=== PATIENT | male | born 1970 ===

== ENCOUNTER 2020-03-19 13:11 | Inpatient (IN) | payer BC ==
[~2020-03-19] VITALS: Ht 162.6 cm; Wt 68.0 kg
[2020-03-19] MEDS ORDERED: BISACODYL 10 MG RECTAL RECTAL SUPPOSITORY PR PRN (20:15)
[2020-03-19] MEDS ORDERED: MAGNESIUM HYDROXIDE SUSPENSION 30 ML UDCUP PO PRN (20:15)
[2020-03-19 20:30] VITALS: BP 134/86
[2020-03-19] MEDS ORDERED: TAMSULOSIN HCL 0.4 MG CAPSULE PO SCH (21:00)
[2020-03-19] MEDS: SENNA 187 MG TABLET PO SCH (22:03)
[2020-03-19] MEDS: DOCUSATE SODIUM 100 MG CAPSULE PO SCH (22:03)
[2020-03-19] MEDS: GABAPENTIN 100 MG CAPSULE PO SCH (22:03)
[2020-03-19] MEDS: HEPARIN SODIUM,PORCINE 5,000 UNITS/ML VIAL SQ SCH (22:03)
[2020-03-19] MEDS: OxyCODONE HCL/ACETAMINOPHEN 5-325 MG TABLET PO PRN (22:04)
[2020-03-19 23:04] VITALS: BP 124/78
[2020-03-20] MEDS: OxyCODONE HCL/ACETAMINOPHEN 5-325 MG TABLET PO PRN ×3 (04:35→21:16)
[2020-03-20] MEDS: GABAPENTIN 100 MG CAPSULE PO SCH ×3 (06:03→21:15)
[2020-03-20 07:15] LABS: BASOPHILS % (AUTO) 0.3 % (0.0-2.0); HEMOGLOBIN 13.1 g/dL (13.5-17.5); LYMPHOCYTES # (AUTO) 1.5 K/uL (1.0-4.8); LYMPHOCYTES % (AUTO) 21.8 % (22.0-44.0); MEAN CORPUSCULAR HGB CONC 33.5 G/dL (31.0-37.0); MEAN CORPUSCULAR VOLUME 90 fL (80-100); MONOCYTES # (AUTO) 0.5 K/uL (0.1-1.0); MONOCYTES % (AUTO) 7.4 % (2.0-9.0); NEUTROPHILS # (AUTO) 4.4 K/uL (1.8-7.7); NEUTROPHILS % (AUTO) 65.5 % (40.0-70.0); PLATELET COUNT (AUTO) 200 K/uL (150-450); RED BLOOD CELL COUNT(AUTO) 4.36 MIL/uL (4.50-5.90); RED CELL DISTRIBUTION WIDTH 13.4 % (11.5-14.5)
[2020-03-20 07:27] LABS: ALANINE AMINOTRANSFERASE 48 U/L (12-78); ALBUMIN 3.1 g/dL (3.4-5.0); ALKALINE PHOSPHATASE 46 U/L (46-116); ANION GAP 4 mmol/L (8-16); ASPARTATE AMINOTRANSFERASE 20 U/L (15-37); BILIRUBIN,TOTAL 0.4 mg/dL (0.1-1.0); CALCIUM, TOTAL 8.6 mg/dL (8.8-10.5); CARBON DIOXIDE 30 mmol/L (22-29); CHLORIDE 100 mmol/L (98-107); CREATININE 0.76 mg/dL (0.60-1.30); GLOMERULAR FILTR. RATE CALC > 60 mL/min (>60); GLUCOSE,RANDOM 140 mg/dL (70-110); POTASSIUM 3.9 mmol/L (3.5-5.1); SODIUM SERUM 134 mmol/L (136-145); TOTAL PROTEIN, SERUM 7.1 g/dL (6.4-8.2); UREA NITROGEN, BLOOD 12 mg/dL (7-18)
[2020-03-20 08:43] VITALS: BP 127/86
[2020-03-20] MEDS: HEPARIN SODIUM,PORCINE 5,000 UNITS/ML VIAL SQ SCH ×2 (09:18→21:16)
[2020-03-20] MEDS: DOCUSATE SODIUM 100 MG CAPSULE PO SCH ×2 (09:18→21:16)
[2020-03-20] MEDS: ACETAMINOPHEN 325 MG TABLET PO PRN ×2 (10:56→15:53)
[2020-03-20 15:45] VITALS: BP 128/82
[2020-03-20] MEDS: CARBOXYMETHYLCELLULOSE SODIUM 0.4 ML OPHTHALMIC SOLUTION [PF] OU PRN (18:49)
[2020-03-20] MEDS: SENNA 187 MG TABLET PO SCH (21:15)
[2020-03-20] MEDS: TAMSULOSIN HCL 0.4 MG CAPSULE PO SCH (21:19)
[2020-03-21] VITALS: BP 135/75
[2020-03-21] MEDS: GABAPENTIN 100 MG CAPSULE PO SCH (06:04)
[2020-03-21 07:28] VITALS: BP 123/75
[2020-03-21] MEDS: HEPARIN SODIUM,PORCINE 5,000 UNITS/ML VIAL SQ SCH ×2 (08:12→20:08)
[2020-03-21] MEDS: DOCUSATE SODIUM 100 MG CAPSULE PO SCH ×2 (08:12→20:07)
[2020-03-21] MEDS: OxyCODONE HCL/ACETAMINOPHEN 5-325 MG TABLET PO PRN ×2 (09:54→20:07)
[2020-03-21] MEDS: ACETAMINOPHEN 325 MG TABLET PO PRN (11:34)
[2020-03-21] MEDS: GABAPENTIN 300 MG CAPSULE PO SCH ×2 (13:13→20:06)
[2020-03-21 16:00] VITALS: BP 127/74
[2020-03-21] MEDS: CARBOXYMETHYLCELLULOSE SODIUM 0.4 ML OPHTHALMIC SOLUTION [PF] OU PRN (16:54)
[2020-03-21] MEDS: DOCUSATE SODIUM 283 MG/5 ML MINI-ENEMA PR SCH (20:06)
[2020-03-21] MEDS: TAMSULOSIN HCL 0.4 MG CAPSULE PO SCH (20:06)
[2020-03-21] MEDS: SENNA 187 MG TABLET PO SCH (20:07)
[2020-03-21] MEDS: CYCLOBENZAPRINE HCL 10 MG TABLET PO PRN (20:07)
[2020-03-22] MEDS: OxyCODONE HCL/ACETAMINOPHEN 5-325 MG TABLET PO PRN ×5 (01:05→19:28)
[2020-03-22 01:15] VITALS: BP 128/74
[2020-03-22] MEDS: GABAPENTIN 300 MG CAPSULE PO SCH ×3 (05:45→21:12)
[2020-03-22 07:17] VITALS: BP 137/83
[2020-03-22 08:47] LABS: ANION GAP 6 mmol/L (8-16); CALCIUM, TOTAL 8.6 mg/dL (8.8-10.5); CARBON DIOXIDE 28 mmol/L (22-29); CHLORIDE 101 mmol/L (98-107); CREATININE 0.73 mg/dL (0.60-1.30); GLOMERULAR FILTR. RATE CALC > 60 mL/min (>60); GLUCOSE,RANDOM 129 mg/dL (70-110); POTASSIUM 4.3 mmol/L (3.5-5.1); SODIUM SERUM 135 mmol/L (136-145); UREA NITROGEN, BLOOD 13 mg/dL (7-18)
[2020-03-22 08:56] LABS: HEMOGLOBIN A1C 5.5 % (3.8-5.6)
[2020-03-22] MEDS: DOCUSATE SODIUM 100 MG CAPSULE PO SCH ×2 (09:50→21:11)
[2020-03-22] MEDS: HEPARIN SODIUM,PORCINE 5,000 UNITS/ML VIAL SQ SCH ×2 (09:50→21:11)
[2020-03-22] MEDS: CARBOXYMETHYLCELLULOSE SODIUM 0.4 ML OPHTHALMIC SOLUTION [PF] OU PRN ×2 (10:32→14:11)
[2020-03-22] MEDS: CYCLOBENZAPRINE HCL 10 MG TABLET PO PRN (12:22)
[2020-03-22 15:30] VITALS: BP 116/69
[2020-03-22 16:31] VITALS: BP 116/69
[2020-03-22] MEDS: DOCUSATE SODIUM 283 MG/5 ML MINI-ENEMA PR SCH (19:28)
[2020-03-22 19:49] VITALS: BP 130/73
[2020-03-22 20:39] LABS: BASOPHILS % (AUTO) 0.6 % (0.0-2.0); EOSINOPHILS % (AUTO) 0.4 % (1.0-6.0); HEMATOCRIT 37.5 % (41-53); HEMOGLOBIN 12.5 g/dL (13.5-17.5); LYMPHOCYTES # (AUTO) 1.2 K/uL (1.0-4.8); LYMPHOCYTES % (AUTO) 8.7 % (22.0-44.0); MEAN CORPUSCULAR HEMOGLOBIN 29.4 pg (26.0-34.0); MEAN CORPUSCULAR HGB CONC 33.2 G/dL (31.0-37.0); MEAN CORPUSCULAR VOLUME 89 fL (80-100); MONOCYTES # (AUTO) 1.1 K/uL (0.1-1.0); MONOCYTES % (AUTO) 8.2 % (2.0-9.0); NEUTROPHILS # (AUTO) 11.2 K/uL (1.8-7.7); NEUTROPHILS % (AUTO) 82.1 % (40.0-70.0); PLATELET COUNT (AUTO) 199 K/uL (150-450); RED BLOOD CELL COUNT(AUTO) 4.23 MIL/uL (4.50-5.90); RED CELL DISTRIBUTION WIDTH 13.5 % (11.5-14.5)
[2020-03-22 20:53] LABS: ANION GAP 7 mmol/L (8-16); CARBON DIOXIDE 27 mmol/L (22-29); CHLORIDE 99 mmol/L (98-107); GLUCOSE,RANDOM 156 mg/dL (70-110); POTASSIUM 3.9 mmol/L (3.5-5.1); SODIUM SERUM 133 mmol/L (136-145); UREA NITROGEN, BLOOD 13 mg/dL (7-18)
[2020-03-22 20:54] LABS: CALCIUM, TOTAL 8.5 mg/dL (8.8-10.5); GLOMERULAR FILTR. RATE CALC > 60 mL/min (>60)
[2020-03-22 20:59] LABS: ALANINE AMINOTRANSFERASE 46 U/L (12-78); ALKALINE PHOSPHATASE 54 U/L (46-116); ASPARTATE AMINOTRANSFERASE 18 U/L (15-37); BILIRUBIN,TOTAL 0.3 mg/dL (0.1-1.0); TOTAL PROTEIN, SERUM 7.4 g/dL (6.4-8.2)
[2020-03-22] MEDS: TAMSULOSIN HCL 0.4 MG CAPSULE PO SCH (21:12)
[2020-03-22] MEDS: SENNA 187 MG TABLET PO SCH (21:12)
[2020-03-22] MEDS: CEPHALEXIN MONOHYDRATE 500 MG CAPSULE PO SCH (21:58)
[2020-03-22 22:18] LABS: APPEARANCE,URINE CLOUDY (CLEAR); BILIRUBIN,URINE NEGATIVE (NEGATIVE); GLUCOSE, URINE (UA) NEGATIVE (NEGATIVE); KETONES,URINE NEGATIVE (NEGATIVE); LEUKOCYTE ESTERASE ,URINE SMALL (NEGATIVE); NITRATE,URINE NEGATIVE (NEGATIVE); OCCULT BLOOD,URINE NEGATIVE (NEGATIVE); PROTEIN,URINE NEGATIVE (NEGATIVE); UROBILINOGEN,URINE 0.2 mg/dL (<=1.0)
[2020-03-22 22:56] LABS: BACTERIA,URINE Many /HPF (None Seen); RBC,URINE None Seen /HPF (0-2); SQUAMOUS EPITHELIAL CELL,UR Few /LPF (None Seen)
[2020-03-23 01:00] VITALS: BP 122/73
[2020-03-23] MEDS: OxyCODONE HCL/ACETAMINOPHEN 5-325 MG TABLET PO PRN ×4 (02:22→19:43)
[2020-03-23] MEDS: GABAPENTIN 300 MG CAPSULE PO SCH ×3 (05:19→20:31)
[2020-03-23 07:09] LABS: BASOPHILS % (AUTO) 0.5 % (0.0-2.0); EOSINOPHILS % (AUTO) 0.4 % (1.0-6.0); HEMATOCRIT 37.9 % (41-53); HEMOGLOBIN 12.7 g/dL (13.5-17.5); LYMPHOCYTES # (AUTO) 1.7 K/uL (1.0-4.8); MEAN CORPUSCULAR HEMOGLOBIN 29.8 pg (26.0-34.0); MEAN CORPUSCULAR HGB CONC 33.4 G/dL (31.0-37.0); MEAN CORPUSCULAR VOLUME 89 fL (80-100); NEUTROPHILS # (AUTO) 11.1 K/uL (1.8-7.7); NEUTROPHILS % (AUTO) 80.1 % (40.0-70.0); PLATELET COUNT (AUTO) 199 K/uL (150-450); RED BLOOD CELL COUNT(AUTO) 4.25 MIL/uL (4.50-5.90); RED CELL DISTRIBUTION WIDTH 13.4 % (11.5-14.5)
[2020-03-23 08:07] VITALS: BP 122/73
[2020-03-23] MEDS: HEPARIN SODIUM,PORCINE 5,000 UNITS/ML VIAL SQ SCH ×2 (08:07→20:30)
[2020-03-23] MEDS: CEPHALEXIN MONOHYDRATE 500 MG CAPSULE PO SCH ×4 (08:50→20:31)
[2020-03-23] MEDS: DOCUSATE SODIUM 100 MG CAPSULE PO SCH ×2 (08:50→20:31)
[2020-03-23] MEDS: CYCLOBENZAPRINE HCL 10 MG TABLET PO PRN (11:48)
[2020-03-23 15:00] VITALS: BP 115/68
[2020-03-23] MEDS: BACLOFEN 10 MG TABLET PO SCH ×2 (15:40→20:30)
[2020-03-23] MEDS: ACETAMINOPHEN 325 MG TABLET PO PRN (15:40)
[2020-03-23] MEDS: DOCUSATE SODIUM 283 MG/5 ML MINI-ENEMA PR SCH (20:23)
[2020-03-23] MEDS: SENNA 187 MG TABLET PO SCH (20:31)
[2020-03-23] MEDS: TAMSULOSIN HCL 0.4 MG CAPSULE PO SCH (20:31)
[2020-03-24 01:58] VITALS: BP 126/75
[2020-03-24] MEDS: OxyCODONE HCL/ACETAMINOPHEN 5-325 MG TABLET PO PRN ×3 (01:58→23:42)
[2020-03-24] MEDS: GABAPENTIN 300 MG CAPSULE PO SCH (05:58)
[2020-03-24 07:08] VITALS: BP 121/121
[2020-03-24] MEDS: DOCUSATE SODIUM 100 MG CAPSULE PO SCH ×2 (08:29→20:58)
[2020-03-24] MEDS: HEPARIN SODIUM,PORCINE 5,000 UNITS/ML VIAL SQ SCH ×2 (08:30→20:57)
[2020-03-24] MEDS: CEPHALEXIN MONOHYDRATE 500 MG CAPSULE PO SCH ×4 (08:30→20:58)
[2020-03-24] MEDS: BACLOFEN 10 MG TABLET PO SCH ×3 (08:30→20:58)
[2020-03-24] MEDS: CARBOXYMETHYLCELLULOSE SODIUM 0.4 ML OPHTHALMIC SOLUTION [PF] OU PRN ×2 (08:30→19:36)
[2020-03-24] MEDS: GABAPENTIN 400 MG CAPSULE PO SCH ×2 (13:16→21:00)
[2020-03-24] MEDS: ESCITALOPRAM OXALATE 10 MG TABLET PO SCH (13:16)
[2020-03-24 15:00] VITALS: BP 128/79
[2020-03-24] MEDS: DOCUSATE SODIUM 283 MG/5 ML MINI-ENEMA PR SCH (18:55)
[2020-03-24] MEDS: SENNA 187 MG TABLET PO SCH (20:58)
[2020-03-24] MEDS: TAMSULOSIN HCL 0.4 MG CAPSULE PO SCH (21:00)
[2020-03-24 23:42] VITALS: BP 132/74
[2020-03-25] MEDS: GABAPENTIN 400 MG CAPSULE PO SCH ×3 (05:50→21:08)
[2020-03-25 07:07] LABS: ANION GAP 7 mmol/L (8-16); CALCIUM, TOTAL 8.8 mg/dL (8.8-10.5); CARBON DIOXIDE 25 mmol/L (22-29); CHLORIDE 99 mmol/L (98-107); CREATININE 0.67 mg/dL (0.60-1.30); GLOMERULAR FILTR. RATE CALC > 60 mL/min (>60); GLUCOSE,RANDOM 140 mg/dL (70-110); POTASSIUM 3.5 mmol/L (3.5-5.1); SODIUM SERUM 131 mmol/L (136-145); UREA NITROGEN, BLOOD 11 mg/dL (7-18)
[2020-03-25 07:16] LABS: BASOPHILS % (AUTO) 0.2 % (0.0-2.0); EOSINOPHILS % (AUTO) 3.2 % (1.0-6.0); HEMOGLOBIN 11.7 g/dL (13.5-17.5); LYMPHOCYTES # (AUTO) 1.1 K/uL (1.0-4.8); LYMPHOCYTES % (AUTO) 15.8 % (22.0-44.0); MEAN CORPUSCULAR HEMOGLOBIN 29.9 pg (26.0-34.0); MEAN CORPUSCULAR HGB CONC 33.3 G/dL (31.0-37.0); MEAN CORPUSCULAR VOLUME 90 fL (80-100); MONOCYTES # (AUTO) 0.4 K/uL (0.1-1.0); MONOCYTES % (AUTO) 6.3 % (2.0-9.0); NEUTROPHILS % (AUTO) 74.5 % (40.0-70.0); PLATELET COUNT (AUTO) 213 K/uL (150-450); RED CELL DISTRIBUTION WIDTH 13.4 % (11.5-14.5)
[2020-03-25 07:50] VITALS: BP 131/85
[2020-03-25] MEDS: HEPARIN SODIUM,PORCINE 5,000 UNITS/ML VIAL SQ SCH ×2 (07:50→21:06)
[2020-03-25] MEDS: CARBOXYMETHYLCELLULOSE SODIUM 0.4 ML OPHTHALMIC SOLUTION [PF] OU PRN (07:50)
[2020-03-25] MEDS: OxyCODONE HCL/ACETAMINOPHEN 5-325 MG TABLET PO PRN ×2 (07:50→20:04)
[2020-03-25] MEDS: CEPHALEXIN MONOHYDRATE 500 MG CAPSULE PO SCH ×4 (09:12→21:08)
[2020-03-25] MEDS: DOCUSATE SODIUM 100 MG CAPSULE PO SCH ×2 (09:15→21:09)
[2020-03-25] MEDS: BACLOFEN 10 MG TABLET PO SCH ×3 (09:15→21:08)
[2020-03-25] MEDS: ESCITALOPRAM OXALATE 10 MG TABLET PO SCH (09:16)
[2020-03-25 16:51] VITALS: BP 134/81
[2020-03-25] MEDS: DOCUSATE SODIUM 283 MG/5 ML MINI-ENEMA PR SCH (17:30)
[2020-03-25] MEDS: TAMSULOSIN HCL 0.4 MG CAPSULE PO SCH (21:08)
[2020-03-25] MEDS: SENNA 187 MG TABLET PO SCH (21:08)
[2020-03-26 00:30] VITALS: BP 136/89
[2020-03-26] MEDS: OxyCODONE HCL/ACETAMINOPHEN 5-325 MG TABLET PO PRN ×3 (00:30→20:08)
[2020-03-26] MEDS: GABAPENTIN 400 MG CAPSULE PO SCH ×3 (06:06→22:03)
[2020-03-26 07:51] VITALS: BP 133/81
[2020-03-26] MEDS: CARBOXYMETHYLCELLULOSE SODIUM 0.4 ML OPHTHALMIC SOLUTION [PF] OU PRN ×2 (09:00→20:31)
[2020-03-26] MEDS: CEPHALEXIN MONOHYDRATE 500 MG CAPSULE PO SCH ×4 (09:00→20:09)
[2020-03-26] MEDS: ESCITALOPRAM OXALATE 10 MG TABLET PO SCH (09:00)
[2020-03-26] MEDS: BACLOFEN 10 MG TABLET PO SCH ×3 (09:01→20:08)
[2020-03-26] MEDS: HEPARIN SODIUM,PORCINE 5,000 UNITS/ML VIAL SQ SCH ×2 (09:01→20:10)
[2020-03-26] MEDS: DOCUSATE SODIUM 100 MG CAPSULE PO SCH ×2 (09:02→20:09)
[2020-03-26 16:10] VITALS: BP 135/79
[2020-03-26] MEDS: SENNA 187 MG TABLET PO SCH (20:09)
[2020-03-26] MEDS: TAMSULOSIN HCL 0.4 MG CAPSULE PO SCH (20:09)
[2020-03-26] MEDS: DOCUSATE SODIUM 283 MG/5 ML MINI-ENEMA PR SCH (20:13)
[2020-03-27 00:10] VITALS: BP 131/74
[2020-03-27] MEDS: OxyCODONE HCL/ACETAMINOPHEN 5-325 MG TABLET PO PRN ×4 (00:10→23:16)
[2020-03-27] MEDS: GABAPENTIN 400 MG CAPSULE PO SCH ×3 (05:55→21:25)
[2020-03-27] MEDS: CEPHALEXIN MONOHYDRATE 500 MG CAPSULE PO SCH ×4 (08:39→19:59)
[2020-03-27] MEDS: BACLOFEN 10 MG TABLET PO SCH ×3 (08:39→20:00)
[2020-03-27] MEDS: ESCITALOPRAM OXALATE 10 MG TABLET PO SCH (08:40)
[2020-03-27] MEDS: HEPARIN SODIUM,PORCINE 5,000 UNITS/ML VIAL SQ SCH ×2 (08:40→20:01)
[2020-03-27] MEDS: DOCUSATE SODIUM 100 MG CAPSULE PO SCH ×2 (08:40→19:59)
[2020-03-27 08:55] VITALS: BP 142/82
[2020-03-27 15:15] VITALS: BP 128/85
[2020-03-27] MEDS: CARBOXYMETHYLCELLULOSE SODIUM 0.4 ML OPHTHALMIC SOLUTION [PF] OU PRN ×2 (15:20→20:01)
[2020-03-27] MEDS: DOCUSATE SODIUM 283 MG/5 ML MINI-ENEMA PR SCH (18:38)
[2020-03-27] MEDS: TAMSULOSIN HCL 0.4 MG CAPSULE PO SCH (19:59)
[2020-03-27] MEDS: SENNA 187 MG TABLET PO SCH (19:59)
[2020-03-27 23:16] VITALS: BP 127/75
[2020-03-28] MEDS: ACETAMINOPHEN 325 MG TABLET PO PRN (04:50)
[2020-03-28 08:09] VITALS: BP 133/80
[2020-03-28] MEDS: CEPHALEXIN MONOHYDRATE 500 MG CAPSULE PO SCH ×4 (09:18→20:56)
[2020-03-28] MEDS: ESCITALOPRAM OXALATE 10 MG TABLET PO SCH (09:18)
[2020-03-28] MEDS: GABAPENTIN 400 MG CAPSULE PO SCH ×3 (09:18→22:02)
[2020-03-28] MEDS: BACLOFEN 10 MG TABLET PO SCH ×3 (09:18→20:56)
[2020-03-28] MEDS: HEPARIN SODIUM,PORCINE 5,000 UNITS/ML VIAL SQ SCH ×2 (09:18→20:55)
[2020-03-28] MEDS: DOCUSATE SODIUM 100 MG CAPSULE PO SCH ×2 (09:18→21:00)
[2020-03-28] MEDS: CARBOXYMETHYLCELLULOSE SODIUM 0.4 ML OPHTHALMIC SOLUTION [PF] OU PRN ×4 (09:20→22:06)
[2020-03-28 15:20] VITALS: BP 135/89
[2020-03-28] MEDS: DOCUSATE SODIUM 283 MG/5 ML MINI-ENEMA PR SCH (19:06)
[2020-03-28] MEDS: TAMSULOSIN HCL 0.4 MG CAPSULE PO SCH (20:56)
[2020-03-28] MEDS: SENNA 187 MG TABLET PO SCH (21:00)
[2020-03-29 00:15] VITALS: BP 124/65
[2020-03-29] MEDS: ACETAMINOPHEN 325 MG TABLET PO PRN (00:15)
[2020-03-29] MEDS: GABAPENTIN 400 MG CAPSULE PO SCH ×3 (06:12→21:05)
[2020-03-29 07:50] VITALS: BP 134/94
[2020-03-29] MEDS: DOCUSATE SODIUM 100 MG CAPSULE PO SCH ×2 (09:30→21:06)
[2020-03-29] MEDS: BACLOFEN 10 MG TABLET PO SCH ×3 (09:30→21:05)
[2020-03-29] MEDS: ESCITALOPRAM OXALATE 10 MG TABLET PO SCH (09:30)
[2020-03-29] MEDS: CEPHALEXIN MONOHYDRATE 500 MG CAPSULE PO SCH (09:30)
[2020-03-29] MEDS: HEPARIN SODIUM,PORCINE 5,000 UNITS/ML VIAL SQ SCH ×2 (09:31→21:05)
[2020-03-29] MEDS: CARBOXYMETHYLCELLULOSE SODIUM 0.4 ML OPHTHALMIC SOLUTION [PF] OU PRN (13:50)
[2020-03-29] MEDS: SODIUM CHLORIDE 1 GM TABLET PO SCH ×2 (15:39→21:06)
[2020-03-29 17:19] VITALS: BP 127/76
[2020-03-29] MEDS: DOCUSATE SODIUM 283 MG/5 ML MINI-ENEMA PR SCH (17:30)
[2020-03-29] MEDS: SENNA 187 MG TABLET PO SCH (21:06)
[2020-03-29] MEDS: TAMSULOSIN HCL 0.4 MG CAPSULE PO SCH (21:06)
[2020-03-29 23:53] VITALS: BP 123/63
[2020-03-30] MEDS: ACETAMINOPHEN 325 MG TABLET PO PRN ×2 (03:00→20:29)
[2020-03-30] MEDS: GABAPENTIN 400 MG CAPSULE PO SCH ×3 (05:56→20:31)
[2020-03-30 08:44] VITALS: BP 133/75
[2020-03-30] MEDS: BACLOFEN 10 MG TABLET PO SCH ×3 (09:24→20:29)
[2020-03-30] MEDS: SODIUM CHLORIDE 1 GM TABLET PO SCH ×3 (09:24→20:31)
[2020-03-30] MEDS: ESCITALOPRAM OXALATE 10 MG TABLET PO SCH (09:24)
[2020-03-30] MEDS: DOCUSATE SODIUM 100 MG CAPSULE PO SCH ×2 (09:24→20:30)
[2020-03-30] MEDS: HEPARIN SODIUM,PORCINE 5,000 UNITS/ML VIAL SQ SCH ×2 (09:24→20:29)
[2020-03-30] MEDS: CARBOXYMETHYLCELLULOSE SODIUM 0.4 ML OPHTHALMIC SOLUTION [PF] OU PRN ×2 (13:41→19:13)
[2020-03-30 16:00] VITALS: BP 142/80
[2020-03-30] MEDS: DOCUSATE SODIUM 283 MG/5 ML MINI-ENEMA PR SCH (18:25)
[2020-03-30] MEDS: SENNA 187 MG TABLET PO SCH (20:30)
[2020-03-30] MEDS: TAMSULOSIN HCL 0.4 MG CAPSULE PO SCH (20:32)
[2020-03-31 03:17] VITALS: BP 116/69
[2020-03-31] MEDS: ACETAMINOPHEN 325 MG TABLET PO PRN ×2 (03:17→23:05)
[2020-03-31] MEDS: GABAPENTIN 400 MG CAPSULE PO SCH ×3 (05:00→20:03)
[2020-03-31 05:59] LABS: BASOPHILS % (AUTO) 0.7 % (0.0-2.0); EOSINOPHILS % (AUTO) 2.5 % (1.0-6.0); HEMATOCRIT 37.3 % (41-53); HEMOGLOBIN 12.4 g/dL (13.5-17.5); LYMPHOCYTES # (AUTO) 1.5 K/uL (1.0-4.8); LYMPHOCYTES % (AUTO) 20.8 % (22.0-44.0); MEAN CORPUSCULAR HEMOGLOBIN 29.8 pg (26.0-34.0); MEAN CORPUSCULAR HGB CONC 33.3 G/dL (31.0-37.0); MEAN CORPUSCULAR VOLUME 90 fL (80-100); MONOCYTES # (AUTO) 0.6 K/uL (0.1-1.0); MONOCYTES % (AUTO) 8.4 % (2.0-9.0); NEUTROPHILS # (AUTO) 4.8 K/uL (1.8-7.7); NEUTROPHILS % (AUTO) 67.6 % (40.0-70.0); PLATELET COUNT (AUTO) 283 K/uL (150-450); RED BLOOD CELL COUNT(AUTO) 4.17 MIL/uL (4.50-5.90); RED CELL DISTRIBUTION WIDTH 13.4 % (11.5-14.5)
[2020-03-31 06:18] LABS: ALANINE AMINOTRANSFERASE 109 U/L (12-78); ALBUMIN 2.9 g/dL (3.4-5.0); ALKALINE PHOSPHATASE 61 U/L (46-116); ANION GAP 5 mmol/L (8-16); ASPARTATE AMINOTRANSFERASE 29 U/L (15-37); BILIRUBIN,TOTAL 0.2 mg/dL (0.1-1.0); CALCIUM, TOTAL 8.7 mg/dL (8.8-10.5); CARBON DIOXIDE 28 mmol/L (22-29); CHLORIDE 104 mmol/L (98-107); CREATININE 0.82 mg/dL (0.60-1.30); GLOMERULAR FILTR. RATE CALC > 60 mL/min (>60); GLUCOSE,RANDOM 121 mg/dL (70-110); SODIUM SERUM 137 mmol/L (136-145); TOTAL PROTEIN, SERUM 7.5 g/dL (6.4-8.2); UREA NITROGEN, BLOOD 14 mg/dL (7-18)
[2020-03-31 07:36] VITALS: BP 124/74
[2020-03-31] MEDS: BACLOFEN 10 MG TABLET PO SCH ×3 (09:24→20:03)
[2020-03-31] MEDS: SODIUM CHLORIDE 1 GM TABLET PO SCH ×3 (09:24→20:05)
[2020-03-31] MEDS: ESCITALOPRAM OXALATE 10 MG TABLET PO SCH (09:24)
[2020-03-31] MEDS: DOCUSATE SODIUM 100 MG CAPSULE PO SCH ×2 (09:24→20:04)
[2020-03-31] MEDS: HEPARIN SODIUM,PORCINE 5,000 UNITS/ML VIAL SQ SCH ×2 (09:25→20:04)
[2020-03-31 15:00] VITALS: BP 113/58
[2020-03-31] MEDS: OxyCODONE HCL/ACETAMINOPHEN 5-325 MG TABLET PO PRN (15:03)
[2020-03-31] MEDS: DOCUSATE SODIUM 283 MG/5 ML MINI-ENEMA PR SCH (17:32)
[2020-03-31] MEDS: CARBOXYMETHYLCELLULOSE SODIUM 0.4 ML OPHTHALMIC SOLUTION [PF] OU PRN (19:13)
[2020-03-31] MEDS: TAMSULOSIN HCL 0.4 MG CAPSULE PO SCH (20:03)
[2020-03-31] MEDS: SENNA 187 MG TABLET PO SCH (20:04)
[2020-03-31 23:05] VITALS: BP 128/75
[2020-04-01] MEDS: GABAPENTIN 400 MG CAPSULE PO SCH ×3 (05:55→21:17)
[2020-04-01 08:40] VITALS: BP 124/74
[2020-04-01] MEDS: ESCITALOPRAM OXALATE 10 MG TABLET PO SCH (08:47)
[2020-04-01] MEDS: OxyCODONE HCL/ACETAMINOPHEN 5-325 MG TABLET PO PRN (08:47)
[2020-04-01] MEDS: DOCUSATE SODIUM 100 MG CAPSULE PO SCH ×2 (08:47→21:17)
[2020-04-01] MEDS: BACLOFEN 10 MG TABLET PO SCH ×3 (08:47→21:17)
[2020-04-01] MEDS: SODIUM CHLORIDE 1 GM TABLET PO SCH (08:47)
[2020-04-01] MEDS: HEPARIN SODIUM,PORCINE 5,000 UNITS/ML VIAL SQ SCH ×2 (08:48→21:17)
[2020-04-01] MEDS: CARBOXYMETHYLCELLULOSE SODIUM 0.4 ML OPHTHALMIC SOLUTION [PF] OU PRN ×2 (13:06→19:51)
[2020-04-01 15:20] VITALS: BP 128/82
[2020-04-01] MEDS: DOCUSATE SODIUM 283 MG/5 ML MINI-ENEMA PR SCH (19:51)
[2020-04-01] MEDS: TAMSULOSIN HCL 0.4 MG CAPSULE PO SCH (21:16)
[2020-04-01] MEDS: SENNA 187 MG TABLET PO SCH (21:17)
[2020-04-02] VITALS: BP 126/70
[2020-04-02] MEDS: GABAPENTIN 400 MG CAPSULE PO SCH ×3 (05:30→20:09)
[2020-04-02 07:23] VITALS: BP 125/74
[2020-04-02] MEDS: SODIUM CHLORIDE 1 GM TABLET PO SCH (08:30)
[2020-04-02] MEDS: BACLOFEN 10 MG TABLET PO SCH ×3 (08:30→20:10)
[2020-04-02] MEDS: ESCITALOPRAM OXALATE 10 MG TABLET PO SCH (08:30)
[2020-04-02] MEDS: DOCUSATE SODIUM 100 MG CAPSULE PO SCH ×2 (08:31→20:08)
[2020-04-02] MEDS: HEPARIN SODIUM,PORCINE 5,000 UNITS/ML VIAL SQ SCH ×2 (08:31→20:09)
[2020-04-02] MEDS: CARBOXYMETHYLCELLULOSE SODIUM 0.4 ML OPHTHALMIC SOLUTION [PF] OU PRN ×2 (09:59→18:44)
[2020-04-02 16:05] VITALS: BP 126/78
[2020-04-02] MEDS: DOCUSATE SODIUM 283 MG/5 ML MINI-ENEMA PR SCH (19:42)
[2020-04-02] MEDS: SENNA 187 MG TABLET PO SCH (20:08)
[2020-04-02] MEDS: TAMSULOSIN HCL 0.4 MG CAPSULE PO SCH (20:09)
[2020-04-03 01:36] VITALS: BP 144/80
[2020-04-03] MEDS: ACETAMINOPHEN 325 MG TABLET PO PRN ×2 (01:36→10:26)
[2020-04-03] MEDS: GABAPENTIN 400 MG CAPSULE PO SCH ×3 (06:21→20:14)
[2020-04-03 07:08] VITALS: BP 137/75
[2020-04-03] MEDS: ESCITALOPRAM OXALATE 10 MG TABLET PO SCH (09:15)
[2020-04-03] MEDS: SODIUM CHLORIDE 1 GM TABLET PO SCH (09:15)
[2020-04-03] MEDS: BACLOFEN 10 MG TABLET PO SCH ×3 (09:16→20:14)
[2020-04-03] MEDS: DOCUSATE SODIUM 100 MG CAPSULE PO SCH ×2 (09:16→20:14)
[2020-04-03] MEDS: HEPARIN SODIUM,PORCINE 5,000 UNITS/ML VIAL SQ SCH ×2 (09:16→20:13)
[2020-04-03] MEDS: CARBOXYMETHYLCELLULOSE SODIUM 0.4 ML OPHTHALMIC SOLUTION [PF] OU PRN (10:34)
[2020-04-03 15:20] VITALS: BP 132/75
[2020-04-03] MEDS ORDERED: GABA-1201 PO (16:17)
[2020-04-03] MEDS ORDERED: BACL10TA PO (16:17)
[2020-04-03] MEDS ORDERED: DOCU-275 PO (16:18)
[2020-04-03] MEDS ORDERED: ESCI-8 PO (16:18)
[2020-04-03] MEDS ORDERED: TAMS-13 PO (16:18)
[2020-04-03] MEDS: DOCUSATE SODIUM 283 MG/5 ML MINI-ENEMA PR SCH (19:35)
[2020-04-03] MEDS: TAMSULOSIN HCL 0.4 MG CAPSULE PO SCH (20:14)
[2020-04-03] MEDS: SENNA 187 MG TABLET PO SCH (20:14)
[2020-04-04] MEDS: ACETAMINOPHEN 325 MG TABLET PO PRN (00:01)
[2020-04-04 00:06] VITALS: BP 133/79
[2020-04-04] MEDS: GABAPENTIN 400 MG CAPSULE PO SCH ×3 (05:13→20:50)
[2020-04-04 07:18] VITALS: BP 128/89
[2020-04-04] MEDS: HEPARIN SODIUM,PORCINE 5,000 UNITS/ML VIAL SQ SCH ×2 (09:12→20:49)
[2020-04-04] MEDS: DOCUSATE SODIUM 100 MG CAPSULE PO SCH ×2 (09:12→20:50)
[2020-04-04] MEDS: SODIUM CHLORIDE 1 GM TABLET PO SCH (09:12)
[2020-04-04] MEDS: BACLOFEN 10 MG TABLET PO SCH ×3 (09:12→20:50)
[2020-04-04] MEDS: ESCITALOPRAM OXALATE 10 MG TABLET PO SCH (09:12)
[2020-04-04] MEDS: CARBOXYMETHYLCELLULOSE SODIUM 0.4 ML OPHTHALMIC SOLUTION [PF] OU PRN (09:31)
[2020-04-04 16:00] VITALS: BP 142/78
[2020-04-04] MEDS: DOCUSATE SODIUM 283 MG/5 ML MINI-ENEMA PR SCH (17:58)
[2020-04-04] MEDS: SENNA 187 MG TABLET PO SCH (20:49)
[2020-04-04] MEDS: TAMSULOSIN HCL 0.4 MG CAPSULE PO SCH (20:49)
[2020-04-05 02:00] VITALS: BP 138/70
[2020-04-05] MEDS: ACETAMINOPHEN 325 MG TABLET PO PRN (02:02)
[2020-04-05] MEDS: GABAPENTIN 400 MG CAPSULE PO SCH ×3 (06:10→20:11)
[2020-04-05] MEDS: BACLOFEN 10 MG TABLET PO SCH ×3 (10:02→20:11)
[2020-04-05] MEDS: SODIUM CHLORIDE 1 GM TABLET PO SCH (10:02)
[2020-04-05] MEDS: DOCUSATE SODIUM 100 MG CAPSULE PO SCH ×2 (10:02→20:11)
[2020-04-05] MEDS: ESCITALOPRAM OXALATE 10 MG TABLET PO SCH (10:02)
[2020-04-05] MEDS: HEPARIN SODIUM,PORCINE 5,000 UNITS/ML VIAL SQ SCH ×2 (10:02→20:12)
[2020-04-05 10:36] VITALS: BP 119/59
[2020-04-05 15:21] VITALS: BP 126/75
[2020-04-05] MEDS: DOCUSATE SODIUM 283 MG/5 ML MINI-ENEMA PR SCH (18:50)
[2020-04-05] MEDS: TAMSULOSIN HCL 0.4 MG CAPSULE PO SCH (20:11)
[2020-04-05] MEDS: SENNA 187 MG TABLET PO SCH (20:14)
[2020-04-06] VITALS: BP 126/81
[2020-04-06] MEDS: ACETAMINOPHEN 325 MG TABLET PO PRN (03:16)
[2020-04-06] MEDS: GABAPENTIN 400 MG CAPSULE PO SCH ×3 (06:06→20:46)
[2020-04-06 07:14] VITALS: BP 132/80
[2020-04-06] MEDS: BACLOFEN 10 MG TABLET PO SCH ×3 (08:18→20:46)
[2020-04-06] MEDS: ESCITALOPRAM OXALATE 10 MG TABLET PO SCH (08:18)
[2020-04-06] MEDS: DOCUSATE SODIUM 100 MG CAPSULE PO SCH ×2 (08:18→20:46)
[2020-04-06] MEDS: HEPARIN SODIUM,PORCINE 5,000 UNITS/ML VIAL SQ SCH ×2 (08:18→20:47)
[2020-04-06] MEDS: SODIUM CHLORIDE 1 GM TABLET PO SCH (08:18)
[2020-04-06 16:14] VITALS: BP 133/83
[2020-04-06] MEDS: DOCUSATE SODIUM 283 MG/5 ML MINI-ENEMA PR SCH (18:13)
[2020-04-06] MEDS: SENNA 187 MG TABLET PO SCH (20:46)
[2020-04-06] MEDS: TAMSULOSIN HCL 0.4 MG CAPSULE PO SCH (20:46)
[2020-04-07 02:13] VITALS: BP 124/72
[2020-04-07] MEDS: ACETAMINOPHEN 325 MG TABLET PO PRN ×2 (02:13→13:24)
[2020-04-07] MEDS: GABAPENTIN 400 MG CAPSULE PO SCH ×3 (06:07→21:26)
[2020-04-07 07:45] LABS: ANION GAP 8 mmol/L (8-16); CARBON DIOXIDE 28 mmol/L (22-29); CHLORIDE 102 mmol/L (98-107); GLOMERULAR FILTR. RATE CALC > 60 mL/min (>60); GLUCOSE,RANDOM 117 mg/dL (70-110); POTASSIUM 4.3 mmol/L (3.5-5.1); SODIUM SERUM 138 mmol/L (136-145); UREA NITROGEN, BLOOD 16 mg/dL (7-18)
[2020-04-07 09:00] VITALS: BP 121/75
[2020-04-07] MEDS: BACLOFEN 10 MG TABLET PO SCH ×3 (10:14→21:26)
[2020-04-07] MEDS: SODIUM CHLORIDE 1 GM TABLET PO SCH (10:14)
[2020-04-07] MEDS: DOCUSATE SODIUM 100 MG CAPSULE PO SCH ×2 (10:14→21:25)
[2020-04-07] MEDS: HEPARIN SODIUM,PORCINE 5,000 UNITS/ML VIAL SQ SCH ×2 (10:14→21:26)
[2020-04-07] MEDS: ESCITALOPRAM OXALATE 10 MG TABLET PO SCH (10:14)
[2020-04-07] MEDS: CARBOXYMETHYLCELLULOSE SODIUM 0.4 ML OPHTHALMIC SOLUTION [PF] OU PRN (13:24)
[2020-04-07 15:30] VITALS: BP 137/81
[2020-04-07] MEDS: DOCUSATE SODIUM 283 MG/5 ML MINI-ENEMA PR SCH (19:30)
[2020-04-07] MEDS: TAMSULOSIN HCL 0.4 MG CAPSULE PO SCH (21:26)
[2020-04-07] MEDS: SENNA 187 MG TABLET PO SCH (21:26)
[2020-04-08] VITALS: BP 131/72
[2020-04-08] MEDS: ACETAMINOPHEN 325 MG TABLET PO PRN ×3 (02:38→21:30)
[2020-04-08] MEDS: GABAPENTIN 400 MG CAPSULE PO SCH ×3 (06:00→21:08)
[2020-04-08 07:00] VITALS: BP 138/80
[2020-04-08] MEDS: DOCUSATE SODIUM 100 MG CAPSULE PO SCH ×2 (08:33→21:08)
[2020-04-08] MEDS: BACLOFEN 10 MG TABLET PO SCH ×3 (08:33→21:08)
[2020-04-08] MEDS: HEPARIN SODIUM,PORCINE 5,000 UNITS/ML VIAL SQ SCH ×2 (08:34→21:09)
[2020-04-08] MEDS: SODIUM CHLORIDE 1 GM TABLET PO SCH (08:34)
[2020-04-08] MEDS: ESCITALOPRAM OXALATE 10 MG TABLET PO SCH (08:34)
[2020-04-08 16:27] VITALS: BP 135/79
[2020-04-08] MEDS: DOCUSATE SODIUM 283 MG/5 ML MINI-ENEMA PR SCH (19:45)
[2020-04-08] MEDS: SENNA 187 MG TABLET PO SCH (21:07)
[2020-04-08] MEDS: TAMSULOSIN HCL 0.4 MG CAPSULE PO SCH (21:08)
[2020-04-09 01:11] VITALS: BP 129/79
[2020-04-09] MEDS: ACETAMINOPHEN 325 MG TABLET PO PRN ×3 (03:41→23:49)
[2020-04-09] MEDS: GABAPENTIN 400 MG CAPSULE PO SCH ×3 (05:38→21:33)
[2020-04-09 08:00] VITALS: BP 136/84
[2020-04-09] MEDS: ESCITALOPRAM OXALATE 10 MG TABLET PO SCH (08:10)
[2020-04-09] MEDS: DOCUSATE SODIUM 100 MG CAPSULE PO SCH ×2 (08:10→21:33)
[2020-04-09] MEDS: BACLOFEN 10 MG TABLET PO SCH ×3 (08:10→21:33)
[2020-04-09] MEDS: HEPARIN SODIUM,PORCINE 5,000 UNITS/ML VIAL SQ SCH ×2 (08:10→21:33)
[2020-04-09 18:23] VITALS: BP 134/76
[2020-04-09] MEDS: DOCUSATE SODIUM 283 MG/5 ML MINI-ENEMA PR SCH (19:16)
[2020-04-09] MEDS: SENNA 187 MG TABLET PO SCH (21:33)
[2020-04-09] MEDS: TAMSULOSIN HCL 0.4 MG CAPSULE PO SCH (21:33)
[2020-04-09 23:49] VITALS: BP 130/79
[2020-04-10] MEDS: GABAPENTIN 400 MG CAPSULE PO SCH ×3 (05:03→20:35)
[2020-04-10 07:20] VITALS: BP 136/73
[2020-04-10] MEDS: ESCITALOPRAM OXALATE 10 MG TABLET PO SCH (09:08)
[2020-04-10] MEDS: BACLOFEN 10 MG TABLET PO SCH ×3 (09:08→20:35)
[2020-04-10] MEDS: DOCUSATE SODIUM 100 MG CAPSULE PO SCH ×2 (09:08→20:35)
[2020-04-10] MEDS: HEPARIN SODIUM,PORCINE 5,000 UNITS/ML VIAL SQ SCH ×2 (09:09→20:35)
[2020-04-10] MEDS: ACETAMINOPHEN 325 MG TABLET PO PRN (11:52)
[2020-04-10 15:25] VITALS: BP 130/76
[2020-04-10] MEDS: DOCUSATE SODIUM 283 MG/5 ML MINI-ENEMA PR SCH (19:35)
[2020-04-10] MEDS: TAMSULOSIN HCL 0.4 MG CAPSULE PO SCH (20:35)
[2020-04-10] MEDS: SENNA 187 MG TABLET PO SCH (20:35)
[2020-04-11 01:00] VITALS: BP 116/75
[2020-04-11] MEDS: ACETAMINOPHEN 325 MG TABLET PO PRN ×2 (05:05→15:33)
[2020-04-11] MEDS: GABAPENTIN 400 MG CAPSULE PO SCH ×3 (06:02→21:22)
[2020-04-11 07:50] VITALS: BP 119/68
[2020-04-11] MEDS: DOCUSATE SODIUM 100 MG CAPSULE PO SCH ×2 (08:19→21:23)
[2020-04-11] MEDS: ESCITALOPRAM OXALATE 10 MG TABLET PO SCH (08:19)
[2020-04-11] MEDS: HEPARIN SODIUM,PORCINE 5,000 UNITS/ML VIAL SQ SCH ×2 (08:19→21:24)
[2020-04-11] MEDS: BACLOFEN 10 MG TABLET PO SCH ×3 (08:19→21:23)
[2020-04-11 15:51] VITALS: BP 120/65
[2020-04-11] MEDS: DOCUSATE SODIUM 283 MG/5 ML MINI-ENEMA PR SCH (19:43)
[2020-04-11] MEDS: SENNA 187 MG TABLET PO SCH (21:22)
[2020-04-11] MEDS: TAMSULOSIN HCL 0.4 MG CAPSULE PO SCH (21:23)
[2020-04-12 00:11] VITALS: BP 128/79
[2020-04-12] MEDS: ACETAMINOPHEN 325 MG TABLET PO PRN ×3 (00:11→23:25)
[2020-04-12] MEDS: GABAPENTIN 400 MG CAPSULE PO SCH ×3 (06:16→20:16)
[2020-04-12 08:40] VITALS: BP 128/84
[2020-04-12] MEDS: BACLOFEN 10 MG TABLET PO SCH ×3 (10:13→20:16)
[2020-04-12] MEDS: ESCITALOPRAM OXALATE 10 MG TABLET PO SCH (10:13)
[2020-04-12] MEDS: DOCUSATE SODIUM 100 MG CAPSULE PO SCH ×2 (10:13→20:24)
[2020-04-12] MEDS: HEPARIN SODIUM,PORCINE 5,000 UNITS/ML VIAL SQ SCH ×2 (10:14→20:24)
[2020-04-12] MEDS: OxyCODONE HCL/ACETAMINOPHEN 5-325 MG TABLET PO PRN (15:16)
[2020-04-12 15:41] VITALS: BP 131/82
[2020-04-12] MEDS: DOCUSATE SODIUM 283 MG/5 ML MINI-ENEMA PR SCH (19:41)
[2020-04-12] MEDS: TAMSULOSIN HCL 0.4 MG CAPSULE PO SCH (20:24)
[2020-04-12] MEDS: SENNA 187 MG TABLET PO SCH (20:25)
[2020-04-12 23:26] VITALS: BP 145/84
[2020-04-13] MEDS: GABAPENTIN 400 MG CAPSULE PO SCH ×3 (05:57→20:37)
[2020-04-13 09:13] VITALS: BP 137/80
[2020-04-13] MEDS: BACLOFEN 10 MG TABLET PO SCH ×3 (09:13→20:37)
[2020-04-13] MEDS: HEPARIN SODIUM,PORCINE 5,000 UNITS/ML VIAL SQ SCH ×2 (09:13→20:38)
[2020-04-13] MEDS: ESCITALOPRAM OXALATE 10 MG TABLET PO SCH (09:13)
[2020-04-13] MEDS: DOCUSATE SODIUM 100 MG CAPSULE PO SCH ×2 (09:13→20:38)
[2020-04-13] MEDS: ACETAMINOPHEN 325 MG TABLET PO PRN (09:13)
[2020-04-13 15:20] VITALS: BP 127/85
[2020-04-13] MEDS: DOCUSATE SODIUM 283 MG/5 ML MINI-ENEMA PR SCH (17:30)
[2020-04-13] MEDS: TAMSULOSIN HCL 0.4 MG CAPSULE PO SCH (20:38)
[2020-04-13] MEDS: SENNA 187 MG TABLET PO SCH (20:38)
[2020-04-13 20:43] VITALS: BP 137/76
[2020-04-13 23:31] VITALS: BP 129/90
[2020-04-14] MEDS: ACETAMINOPHEN 325 MG TABLET PO PRN ×2 (03:20→10:05)
[2020-04-14] MEDS: GABAPENTIN 400 MG CAPSULE PO SCH ×3 (05:51→21:00)
[2020-04-14 08:46] VITALS: BP 113/68
[2020-04-14] MEDS: BACLOFEN 10 MG TABLET PO SCH ×3 (10:05→21:00)
[2020-04-14] MEDS: ESCITALOPRAM OXALATE 10 MG TABLET PO SCH (10:05)
[2020-04-14] MEDS: DOCUSATE SODIUM 100 MG CAPSULE PO SCH ×2 (10:06→21:00)
[2020-04-14] MEDS: HEPARIN SODIUM,PORCINE 5,000 UNITS/ML VIAL SQ SCH ×2 (10:06→21:00)
[2020-04-14 15:20] VITALS: BP 136/88
[2020-04-14] MEDS: DOCUSATE SODIUM 283 MG/5 ML MINI-ENEMA PR SCH (17:30)
[2020-04-14] MEDS: SENNA 187 MG TABLET PO SCH (21:00)
[2020-04-14] MEDS: TAMSULOSIN HCL 0.4 MG CAPSULE PO SCH (21:02)
[2020-04-15 00:50] VITALS: BP 132/82
[2020-04-15] MEDS: ACETAMINOPHEN 325 MG TABLET PO PRN (00:50)
[2020-04-15] MEDS: GABAPENTIN 400 MG CAPSULE PO SCH ×3 (05:59→20:14)
[2020-04-15] MEDS: DOCUSATE SODIUM 100 MG CAPSULE PO SCH ×2 (08:47→20:14)
[2020-04-15] MEDS: BACLOFEN 10 MG TABLET PO SCH ×3 (08:51→20:14)
[2020-04-15] MEDS: ESCITALOPRAM OXALATE 10 MG TABLET PO SCH (08:51)
[2020-04-15] MEDS: HEPARIN SODIUM,PORCINE 5,000 UNITS/ML VIAL SQ SCH ×2 (08:52→20:15)
[2020-04-15 11:26] VITALS: BP 132/78
[2020-04-15 15:00] VITALS: BP 151/84
[2020-04-15] MEDS: DOCUSATE SODIUM 283 MG/5 ML MINI-ENEMA PR SCH (17:30)
[2020-04-15] MEDS: TAMSULOSIN HCL 0.4 MG CAPSULE PO SCH (20:14)
[2020-04-15] MEDS: SENNA 187 MG TABLET PO SCH (20:14)
[2020-04-16] VITALS: BP 125/81
[2020-04-16] MEDS: ACETAMINOPHEN 325 MG TABLET PO PRN ×2 (01:14→23:32)
[2020-04-16] MEDS: GABAPENTIN 400 MG CAPSULE PO SCH ×3 (06:09→20:22)
[2020-04-16 06:35] LABS: BASOPHILS % (AUTO) 0.7 % (0.0-2.0); EOSINOPHILS % (AUTO) 3.8 % (1.0-6.0); HEMATOCRIT 39.8 % (41-53); HEMOGLOBIN 13.2 g/dL (13.5-17.5); LYMPHOCYTES # (AUTO) 1.4 K/uL (1.0-4.8); LYMPHOCYTES % (AUTO) 29.8 % (22.0-44.0); MEAN CORPUSCULAR HEMOGLOBIN 29.9 pg (26.0-34.0); MEAN CORPUSCULAR HGB CONC 33.1 G/dL (31.0-37.0); MEAN CORPUSCULAR VOLUME 91 fL (80-100); MONOCYTES # (AUTO) 0.4 K/uL (0.1-1.0); MONOCYTES % (AUTO) 9.1 % (2.0-9.0); NEUTROPHILS # (AUTO) 2.6 K/uL (1.8-7.7); NEUTROPHILS % (AUTO) 56.6 % (40.0-70.0); PLATELET COUNT (AUTO) 167 K/uL (150-450); RED CELL DISTRIBUTION WIDTH 14.1 % (11.5-14.5)
[2020-04-16 06:51] LABS: ALANINE AMINOTRANSFERASE 95 U/L (12-78); ALBUMIN 3.2 g/dL (3.4-5.0); ALKALINE PHOSPHATASE 68 U/L (46-116); ANION GAP 8 mmol/L (8-16); ASPARTATE AMINOTRANSFERASE 29 U/L (15-37); BILIRUBIN,TOTAL 0.3 mg/dL (0.1-1.0); CALCIUM, TOTAL 8.8 mg/dL (8.8-10.5); CARBON DIOXIDE 28 mmol/L (22-29); CHLORIDE 105 mmol/L (98-107); CREATININE 0.87 mg/dL (0.60-1.30); GLOMERULAR FILTR. RATE CALC > 60 mL/min (>60); GLUCOSE,RANDOM 117 mg/dL (70-110); POTASSIUM 4.3 mmol/L (3.5-5.1); SODIUM SERUM 141 mmol/L (136-145); TOTAL PROTEIN, SERUM 7.1 g/dL (6.4-8.2); UREA NITROGEN, BLOOD 15 mg/dL (7-18)
[2020-04-16] MEDS: DOCUSATE SODIUM 100 MG CAPSULE PO SCH ×2 (09:39→20:23)
[2020-04-16] MEDS: ESCITALOPRAM OXALATE 10 MG TABLET PO SCH (09:40)
[2020-04-16] MEDS: BACLOFEN 10 MG TABLET PO SCH ×3 (09:40→20:23)
[2020-04-16] MEDS: HEPARIN SODIUM,PORCINE 5,000 UNITS/ML VIAL SQ SCH ×2 (09:40→20:22)
[2020-04-16 10:58] VITALS: BP 130/77
[2020-04-16 16:00] VITALS: BP 139/80
[2020-04-16] MEDS: DOCUSATE SODIUM 283 MG/5 ML MINI-ENEMA PR SCH (17:30)
[2020-04-16] MEDS: TAMSULOSIN HCL 0.4 MG CAPSULE PO SCH (20:22)
[2020-04-16] MEDS: SENNA 187 MG TABLET PO SCH (20:22)
[2020-04-16 23:32] VITALS: BP 124/82
[2020-04-17] MEDS: GABAPENTIN 400 MG CAPSULE PO SCH ×3 (05:43→20:30)
[2020-04-17] MEDS: OxyCODONE HCL/ACETAMINOPHEN 5-325 MG TABLET PO PRN (05:43)
[2020-04-17 07:10] VITALS: BP 124/72
[2020-04-17] MEDS: ESCITALOPRAM OXALATE 10 MG TABLET PO SCH (08:13)
[2020-04-17] MEDS: DOCUSATE SODIUM 100 MG CAPSULE PO SCH ×2 (08:13→20:30)
[2020-04-17] MEDS: HEPARIN SODIUM,PORCINE 5,000 UNITS/ML VIAL SQ SCH ×2 (08:14→20:30)
[2020-04-17] MEDS: BACLOFEN 10 MG TABLET PO SCH ×3 (08:14→20:30)
[2020-04-17 16:00] VITALS: BP 148/90
[2020-04-17] MEDS: DOCUSATE SODIUM 283 MG/5 ML MINI-ENEMA PR SCH (19:23)
[2020-04-17] MEDS: TAMSULOSIN HCL 0.4 MG CAPSULE PO SCH (20:29)
[2020-04-17] MEDS: SENNA 187 MG TABLET PO SCH (20:29)
[2020-04-17 23:11] VITALS: BP 131/75
[2020-04-17] MEDS: ACETAMINOPHEN 325 MG TABLET PO PRN (23:11)
[2020-04-18] MEDS: GABAPENTIN 400 MG CAPSULE PO SCH ×2 (05:09→15:29)
[2020-04-18 07:00] VITALS: BP 133/84
[2020-04-18 08:30] VITALS: BP 133/84
[2020-04-18] MEDS: DOCUSATE SODIUM 100 MG CAPSULE PO SCH ×2 (08:35→21:01)
[2020-04-18] MEDS: BACLOFEN 10 MG TABLET PO SCH ×3 (08:35→21:01)
[2020-04-18] MEDS: ESCITALOPRAM OXALATE 10 MG TABLET PO SCH (08:35)
[2020-04-18] MEDS: ACETAMINOPHEN 325 MG TABLET PO PRN (08:35)
[2020-04-18] MEDS: HEPARIN SODIUM,PORCINE 5,000 UNITS/ML VIAL SQ SCH ×2 (08:36→21:01)
[2020-04-18] MEDS: CARBOXYMETHYLCELLULOSE SODIUM 0.4 ML OPHTHALMIC SOLUTION [PF] OU PRN (14:20)
[2020-04-18 15:00] VITALS: BP 125/66
[2020-04-18] MEDS: DOCUSATE SODIUM 283 MG/5 ML MINI-ENEMA PR SCH (17:30)
[2020-04-18] MEDS: SENNA 187 MG TABLET PO SCH (21:00)
[2020-04-18] MEDS: GABAPENTIN 300 MG CAPSULE PO SCH (21:01)
[2020-04-18] MEDS: TAMSULOSIN HCL 0.4 MG CAPSULE PO SCH (21:01)
[2020-04-19 01:02] VITALS: BP 130/82
[2020-04-19] MEDS: ACETAMINOPHEN 325 MG TABLET PO PRN ×2 (01:39→09:29)
[2020-04-19 09:25] VITALS: BP 131/81
[2020-04-19] MEDS: ESCITALOPRAM OXALATE 10 MG TABLET PO SCH (09:28)
[2020-04-19] MEDS: DOCUSATE SODIUM 100 MG CAPSULE PO SCH ×2 (09:29→20:39)
[2020-04-19] MEDS: HEPARIN SODIUM,PORCINE 5,000 UNITS/ML VIAL SQ SCH ×2 (09:29→20:40)
[2020-04-19] MEDS: GABAPENTIN 400 MG CAPSULE PO SCH ×2 (09:29→16:52)
[2020-04-19] MEDS: BACLOFEN 10 MG TABLET PO SCH ×3 (09:29→20:40)
[2020-04-19 17:06] VITALS: BP 133/91
[2020-04-19] MEDS: DOCUSATE SODIUM 283 MG/5 ML MINI-ENEMA PR SCH (19:00)
[2020-04-19] MEDS: SENNA 187 MG TABLET PO SCH (20:39)
[2020-04-19] MEDS: TAMSULOSIN HCL 0.4 MG CAPSULE PO SCH (20:39)
[2020-04-19] MEDS: GABAPENTIN 300 MG CAPSULE PO SCH (20:40)
[2020-04-19 23:33] VITALS: BP 131/78
[2020-04-20 08:40] VITALS: BP 128/72
[2020-04-20] MEDS: ACETAMINOPHEN 325 MG TABLET PO PRN (08:41)
[2020-04-20] MEDS: GABAPENTIN 400 MG CAPSULE PO SCH ×2 (08:41→16:56)
[2020-04-20] MEDS: HEPARIN SODIUM,PORCINE 5,000 UNITS/ML VIAL SQ SCH ×2 (08:41→19:59)
[2020-04-20] MEDS: ESCITALOPRAM OXALATE 10 MG TABLET PO SCH (08:41)
[2020-04-20] MEDS: BACLOFEN 10 MG TABLET PO SCH ×3 (08:41→20:00)
[2020-04-20] MEDS: DOCUSATE SODIUM 100 MG CAPSULE PO SCH ×2 (08:42→20:00)
[2020-04-20 16:47] VITALS: BP 140/89
[2020-04-20] MEDS: DOCUSATE SODIUM 283 MG/5 ML MINI-ENEMA PR SCH (17:30)
[2020-04-20] MEDS: TAMSULOSIN HCL 0.4 MG CAPSULE PO SCH (20:00)
[2020-04-20] MEDS: SENNA 187 MG TABLET PO SCH (20:00)
[2020-04-20] MEDS: GABAPENTIN 300 MG CAPSULE PO SCH (20:00)
[2020-04-20 23:15] VITALS: BP 132/83
[2020-04-21] MEDS: ACETAMINOPHEN 325 MG TABLET PO PRN (03:58)
[2020-04-21 08:00] VITALS: BP 126/86
[2020-04-21] MEDS: BACLOFEN 10 MG TABLET PO SCH ×3 (08:42→20:25)
[2020-04-21] MEDS: GABAPENTIN 400 MG CAPSULE PO SCH ×2 (08:42→15:31)
[2020-04-21] MEDS: ESCITALOPRAM OXALATE 10 MG TABLET PO SCH (08:42)
[2020-04-21] MEDS: HEPARIN SODIUM,PORCINE 5,000 UNITS/ML VIAL SQ SCH ×2 (08:42→20:26)
[2020-04-21] MEDS: DOCUSATE SODIUM 100 MG CAPSULE PO SCH ×2 (08:43→20:26)
[2020-04-21 16:09] VITALS: BP 134/87
[2020-04-21] MEDS: DOCUSATE SODIUM 283 MG/5 ML MINI-ENEMA PR SCH (17:30)
[2020-04-21] MEDS: GABAPENTIN 300 MG CAPSULE PO SCH (20:25)
[2020-04-21] MEDS: TAMSULOSIN HCL 0.4 MG CAPSULE PO SCH (20:25)
[2020-04-21] MEDS: SENNA 187 MG TABLET PO SCH (20:26)
[2020-04-22 00:18] VITALS: BP 131/81
[2020-04-22] MEDS: ACETAMINOPHEN 325 MG TABLET PO PRN ×2 (00:18→23:03)
[2020-04-22] MEDS: DOCUSATE SODIUM 100 MG CAPSULE PO SCH ×2 (09:00→21:00)
[2020-04-22 09:06] VITALS: BP 114/81
[2020-04-22] MEDS: BACLOFEN 10 MG TABLET PO SCH ×3 (09:21→20:28)
[2020-04-22] MEDS: GABAPENTIN 400 MG CAPSULE PO SCH ×2 (09:22→17:02)
[2020-04-22] MEDS: HEPARIN SODIUM,PORCINE 5,000 UNITS/ML VIAL SQ SCH ×2 (09:22→20:28)
[2020-04-22] MEDS: ESCITALOPRAM OXALATE 10 MG TABLET PO SCH (09:22)
[2020-04-22] MEDS ORDERED: GABA-1181 PO (13:45)
[2020-04-22 15:57] VITALS: BP 134/85
[2020-04-22] MEDS: DOCUSATE SODIUM 283 MG/5 ML MINI-ENEMA PR SCH (17:16)
[2020-04-22] MEDS: GABAPENTIN 300 MG CAPSULE PO SCH (20:28)
[2020-04-22] MEDS: TAMSULOSIN HCL 0.4 MG CAPSULE PO SCH (20:28)
[2020-04-22] MEDS: SENNA 187 MG TABLET PO SCH (21:00)
[2020-04-22 23:03] VITALS: BP 145/79
[2020-04-23] MEDS: ACETAMINOPHEN 325 MG TABLET PO PRN (04:10)
[2020-04-23] MEDS ORDERED: ASPI-728 PO (06:18)
[2020-04-23 08:05] VITALS: BP 129/79
[2020-04-23] MEDS: GABAPENTIN 400 MG CAPSULE PO SCH (08:45)
[2020-04-23] MEDS: BACLOFEN 10 MG TABLET PO SCH (08:46)
[2020-04-23] MEDS: ESCITALOPRAM OXALATE 10 MG TABLET PO SCH (08:46)
[2020-04-23] MEDS: HEPARIN SODIUM,PORCINE 5,000 UNITS/ML VIAL SQ SCH (08:47)
[2020-04-23] MEDS: DOCUSATE SODIUM 100 MG CAPSULE PO SCH (08:47)
== END 2020-04-23 13:09 | disposition home health service (06) | DRG 963 ==
LOC: 2WR 19:50 → UNDOADMIN 19:50 → 2WR 03-20 16:00
PROVIDERS: ADMIT Physical Medicine & Rehabilitation; ATTEND Physical Medicine & Rehabilitation
DX: S14.129A Central cord syndrome at unspecified level of cervical spinal cord, initial encounter (principal); G82.50 Quadriplegia, unspecified; S06.891A Other specified intracranial injury with loss of consciousness of 30 minutes or less, initial encounter; N39.0 Urinary tract infection, site not specified; K59.2 Neurogenic bowel, not elsewhere classified; E44.0 Moderate protein-calorie malnutrition; E87.1 Hypo-osmolality and hyponatremia; M48.02 Spinal stenosis, cervical region; R33.9 Retention of urine, unspecified; G89.0 Central pain syndrome; Z91.81 History of falling; F43.20 Adjustment disorder, unspecified; K59.00 Constipation, unspecified; N40.0 Benign prostatic hyperplasia without lower urinary tract symptoms; Z87.891 Personal history of nicotine dependence; Z68.25 Body mass index [BMI] 25.0-25.9, adult; R25.2 Cramp and spasm; M54.9 Dorsalgia, unspecified; Z20.828 Contact with and (suspected) exposure to other viral communicable diseases; M19.90 Unspecified osteoarthritis, unspecified site
CPT/HCPCS: 73502; 83036; 87040; 87081; 87086; 87426; 92507; 92508; 92523; 97110; 97112; 97116; 97140; 97163; 97167; 97530; 97535; 99366; J1644; 36415-L1; 36415-TC; 71045-TC